=== PATIENT | male | born 1945 | race Caucasian/White ===

== ENCOUNTER 2017-07-02 07:46 | Observation (INO) | payer MEDICARE ==
[2017-07-02] MEDS ORDERED: ALBUTEROL SULFATE/IPRATROPIUM 3 ML NEBU IH ONE ×2 (08:20→08:29)
[2017-07-02] MEDS ORDERED: METHYLPREDNISOLONE SOD SUCC/PF 125 MG/2 ML VIAL IV ONE (08:20)
[2017-07-02] MEDS ORDERED: METHYLPREDNISOLONE SOD SUCC/PF 40 MG/ML VIAL ONE (08:29)
[2017-07-02 08:48] LABS: Hematocrit 36.4 % (42.0-52.0); Hemoglobin 11.8 gm/dL (13.5-18.0); Mean Cell Volume 88.8 fl (78-100); Mean Corpuscular Hemoglobin 28.8 pg (27-31); Mean Corpuscular Hgb Conc 32.4 g/dl (32-36); Mean Platelet Volume 10.2 fl (6.0-9.5); Neutrophil # 6.1 K/mm3 (1.3-6.0); Neutrophil % 74.7 % (42-75.0); Platelet Count 160 K/mm3 (150-450); Red Cell Distribution Width 14.1 % (11.5-14.0); White Blood Count 8.2 K/mm3 (4.0-10.5)
[2017-07-02] MEDS ORDERED: LEVOFLOXACIN IN DEXTROSE 5 % 500 MG/100 ML BAG IV SCH (09:00)
[2017-07-02 09:04] LABS: ALT 10 U/L (19-67); AST 11 U/L (0-48); Albumin * 3.3 gm/dl (3.4-5.0); Alkaline Phosphatase * 106 U/L (50-170); Anion Gap 2.7 mmol/L (6.8-13.8); BUN/Creatinine Ratio 17.2 (9.0-21.6); Bilirubin, Total 0.4 mg/dL (0.0-1.1); Blood Urea Nitrogen 22 mg/dL (6-23); Ca. Corrected For Albumin 9.4 mg/dL (8.4-10.2); Calcium * 9.2 mg/dL (7.9-10.9); Carbon Dioxide 36.7 mmol/L (24-32.6); Chloride 101 mmol/L (97-106); Glucose * 93 mg/dL (70-110); Potassium 4.4 mmol/L (3.4-4.6); Sodium 136 mmol/L (132-142); Total Protein 7.7 gm/dL (6.2-8.2)
[2017-07-02 09:05] LABS: Troponin I Less than 0.017 ng/ml (0.00-0.10)
--- NOTE | 2017-07-02 10:24 | ERNOTE ---
Abdominal HPI - Narrative Date of Service: 07/02/17 - General Chief Complaint: Constipation Time Seen by Provider: 07/02/17 08:16 Source: patient, family Exam Limitations: no limitations - Immun/Allergies/Home Medications Immunizatons: IMMUNIZATION HX Immunizations Up to Date No History of Influenza Vaccine More Information Required Hx Pneumococcal Vaccination More Information Required Allergies/Adverse Reactions: Allergies No Known Drug Allergies Allergy (Verified 07/02/17 08:03) Home Medications: HOME MEDICATIONS Albuterol Sulfate [Albuterol Sulfate 2.5 MG/0.5ML] 1 vial IH Q4H #60 vial [Last Taken Unknown] Albuterol Sulfate [Proair Hfa] 2 puff IH Q4H PRN 10/28/15 [Last Taken Unknown] Diltiazem HCl [Cardizem Cd] 180 mg PO DAILY #30 cap 10/28/15 [Last Taken Unknown ] Ipratropium [place] [Atrovent] 0.5 mg IH QID #40 vial.neb 10/28/15 [Last Taken Unknown] Ipratropium [place] [Ipratropium [place] (Atrovent)] 3 ml IH QID PRN 10/28/15 [ Last Taken Unknown] Aspirin [Aspirin Chewable] 81 mg PO DAILY 07/02/17 [Last Taken Unknown] Digoxin [Lanoxin] 0.125 mg PO DAILY 07/02/17 [Last Taken Unknown] Diltiazem HCl [Diltiazem 24Hr Cd] 180 mg PO DAILY 07/02/17 [Last Taken Unknown] LORazepam [Ativan] 0.5 mg PO TID PRN 07/02/17 [Last Taken Unknown] Metoprolol Tartrate [Lopressor] 12.5 mg PO DAILY 07/02/17 [Last Taken Unknown] - History of Present Illness Narrative: Patient presents via EMS with 2 complaints. He relates that he has been more SOB for the last 3 days or so. Some increased cough but not productive. No fever has been noted. He also relates he has been constipated. Last small BM 2 days ago. no vomiting. No CP. Noting seems to make this better or worse. has not seen anyone else for this. Timing: constant, getting worse Quality: moderate Activities at Onset: none Modifying Factors - (Improves): Present: other - nothing Modifying Factors - (Worsens): Present: other - nothing Associated Symptoms: Absent: headache, chest pain, fever/chills, syncope Prior Treatment: Absent: recently seen Review of Systems - Review of Systems Constitutional: Absent: fever EYE: Present: no symptoms reported ENT: Absent: sore throat Respiratory: Present: See HPI Cardiology: Absent: chest pain Gastrointestinal/Abdominal: Present: See HPI Genitourinary: Absent: dysuria Musculoskeletal: Present: other - no calf pain Skin: Absent: rash Neurological: Absent: weakness All Other Systems: All systems neg except as marked - Patient's Past Medical History Patient History - Medical: Anemia Patient History - Cardiac/Respiratory: COPD Patient History - Cancer: No Hx of Cancer Patient History - Surgical Procedures: Cataracts, EGD, Other Patient History - Other: None - Family History Mother Family History - Medical: Father Family History - Medical: Sister Family History - Medical: - Social History Living Situations: home Abuse History: No History of abuse Psych History: No pertinent hx Alcohol Use: none Drug Use: none - Immunizations Immunizations Up to Date: No Hx Pneumococcal Vaccination: More Information Required to Determine History of Influenza Vaccine: More Information Required to Determine Physical Exam - Physical Exam General Appearance: Present: alert, other - chronically ill appearing, mild tachypnea Head Exam: Present: normal inspection, no evidence of injury Eye Exam: Normal inspection: bilateral, PERRL: bilateral Ears, Nose, Throat: Absent: pharyngeal erythema Neck: Present: normal inspection Respiratory: Present: other - diminished throughout, faint wheezes noted. Tachypnea Cardiovascular/Chest: Present: regular rate, rhythm, normal peripheral pulses Gastrointestinal/Abdominal: Present: normal bowel sounds, nontender, soft. Absent: guarding, rebound Back Exam: Absent: CVA tenderness (R), CVA tenderness (L) Extremity Exam: Absent: pedal edema Neurological Exam: Present: alert, other - generalized weakness noted. No acute unilateral focal motor or sensory deficits Skin Exam: Present: normal color, warm/dry ED Progress - Results and Orders Patient's Lab Results:: I have reviewed the patient's lab results. - Vital Signs Patient's Vital Signs:: I have reviewed the patient's vital signs. Vital Signs: Vital Signs 07/02/17 07/02/17 07/02/17 07:58 08:13 08:28 Temperature 36.7 C Pulse Rate 72 65 59 L Respiratory 14 27 H 26 H Rate Blood Pressure 150/99 175/81 173/78 O2 Sat by Pulse 96 99 98 Oximetry 07/02/17 07/02/17 07/02/17 08:43 09:01 09:03 Temperature Pulse Rate 60 65 65 Respiratory 21 H 22 H 22 H Rate Blood Pressure 174/69 167/76 O2 Sat by Pulse 99 98 98 Oximetry 07/02/17 07/02/17 07/02/17 09:12 09:27 09:42 Temperature Pulse Rate 71 66 72 Respiratory 26 H 18 28 H Rate Blood Pressure 181/80 160/67 167/74 O2 Sat by Pulse 98 95 95 Oximetry 07/02/17 10:00 Temperature Pulse Rate 67 Respiratory 22 H Rate Blood Pressure 169/67 O2 Sat by Pulse 97 Oximetry - EKG EKG read: Interp. by me EKG Comments: Sinus rm rate 54 Non-specific ST/T wave changes, no STEMI - X-Ray X-Ray #1 X-Ray: chest Interpretation: Interp. by me X-ray Comments: No real-time radiology reads. Right lower lobe pneumonia. - Progress/Reassessment Chief Complaint: Constipation Progress Note-Subjective: 07/02/17 10:20 IV steroids and IV ABX given. Neb given. He has new pneumonia with home O2 dependent COPD and increased SOB. D/W Dr Ramos who will admit. Pt agreeable. Departure Clinical Impression: COPD with exacerbation, Pneumonia, Constipation - Departure Disposition: [facility] Condition: Fair
--- NOTE | 2017-07-02 12:22 | HP ---
Chief Complaint - Chief Complaint Date of Service: 07/02/17 Time of Service: 11:59 History of Present Illness: Mr. Marquez reports that he has been declining for some time and has had progressive weakness. He states that he is not really ambulatory because his legs are weak and he is afraid of falling he denies weight loss but looks very thin. He admits to dyspnea with minor exertion such as changing positions and dressing. He denies any pain at this time. He is admitted with diagnosis of acute exacerbation of COPD. He also appears as a failure to thrive adult. And he has chronic constipation problems with occasional fecal incontinence. - Patient's Past Medical History Patient History - Medical: Anemia Patient History - Cardiac/Respiratory: COPD Patient History - Cancer: No Hx of Cancer Patient History - Surgical Procedures: Cataracts, EGD, Other Patient History - Other: None - Family History Mother Family History - Medical: , Other - she of lung cancer. Family History - Cardiac/Respiratory: Angina, Coronary Heart Disease, Other - he has 2 brothers both of whom have coronary artery disease and one has had a pig valve replacement his mitral valve. Family History - Cancer: Lung Father Family History - Medical: Family History - Cardiac/Respiratory: Coronary Heart Disease Family History - Cancer: No pertinent family hx Sister Family History - Medical: Family History - Cardiac/Respiratory: No pertinent hx Family History - Cancer: No pertinent family hx - Social History Living Situations: home Abuse History: No History of abuse Psych History: No pertinent hx Does anyone smoke in the home?: Yes - Tito is a current every day smoker. Smoking Status: Current every day smoker Have you smoked in the past 12 months: Yes Alcohol Use: none Drug Use: none - Immunizations Immunizations Up to Date: No Hx Pneumococcal Vaccination: More Information Required to Determine History of Influenza Vaccine: More Information Required to Determine Review Of Systems (GEN) - Review of Systems Generalized/Overall Review: Present: Weakness, Malaise, Fatigue EENTM: Present: Blurred Vision Respiratory: Present: Cough, Shortness of Breath, Wheezing Cardiac: Present: No Symptoms Reported Abdominal: Present: Constipation, Other - Occasional fecal incontinence. Genitourinary: Present: No Symptoms Reported Musculoskeletal: Present: Other - Diffuse motor weakness. Neurological: Present: Depressed, Weakness Skin: Present: No Symptoms Reported, Dryness - With scaliness Endocrine: Present: No Symptoms Reported Misc: All systems neg except as marked Additional Comments: Mr. Marquez appears to be generally debilitated. He will need a thorough evaluation for her to thrive. He appears gaunt and malnourished. His report dentition Immunizations: IMMUNIZATION HX Immunizations Up to Date No History of Influenza Vaccine More Information Required Hx Pneumococcal Vaccination More Information Required Allergies/Adverse Reactions: Allergies Allergy/AdvReac Type Severity Reaction Status Date / Time No Known Drug Allergies Allergy Verified 07/02/17 08:03 Home Medications: HOME MEDICATIONS Albuterol Sulfate [Albuterol Sulfate 2.5 MG/0.5ML] 1 vial IH Q4H #60 vial [Last Taken Unknown] Albuterol Sulfate [Proair Hfa] 2 puff IH Q4H PRN 10/28/15 [Last Taken Unknown] Diltiazem HCl [Cardizem Cd] 180 mg PO DAILY #30 cap 10/28/15 [Last Taken Unknown ] Ipratropium [place] [Atrovent] 0.5 mg IH QID #40 vial.neb 10/28/15 [Last Taken Unknown] Ipratropium [place] [Ipratropium [place] (Atrovent)] 3 ml IH QID PRN 10/28/15 [ Last Taken Unknown] Aspirin [Aspirin Chewable] 81 mg PO DAILY 07/02/17 [Last Taken Unknown] Digoxin [Lanoxin] 0.125 mg PO DAILY 07/02/17 [Last Taken Unknown] Diltiazem HCl [Diltiazem 24Hr Cd] 180 mg PO DAILY 07/02/17 [Last Taken Unknown] LORazepam [Ativan] 0.5 mg PO TID PRN 07/02/17 [Last Taken Unknown] Metoprolol Tartrate [Lopressor] 12.5 mg PO DAILY 07/02/17 [Last Taken Unknown] Exam - Exam Vital Signs: Vital Signs - Last Taken Temp 36.8 C 07/02/17 11:11 Pulse 71 07/02/17 11:11 Resp 20 07/02/17 11:11 BP 170/69 07/02/17 11:11 Pulse Ox 100 07/02/17 11:11 Constitutional: Present: Alert, Oriented x3, Cooperative, No distress, Elderly, Thin and frail, Looks Older than stated age ENT Exam: Present: normal ENT inspection, hearing grossly normal, pharynx normal , TMs normal, hard of hearing, muffled/hoarse voice Eye Exam: bilateral eye: PERRL, EOMI, other - poor visual acuity both eyes Neck: Present: non-tender, full range of motion, supple, normal inspection Back Exam: Present: normal inspection, no CVA tenderness, no vertebral tenderness Breasts: Present: Other - Male breast tissue is normal Respiratory: Present: decreased breath sounds, rhonchi, expiration (prolonged). Absent: rales, stridor, wheezing Cardiovascular/Chest: Present: normal peripheral pulses, no chest tenderness, no edema, no gallop, irregularly irregular Peripheral Pulses: carotid (R): 2+, carotid (L): 2+, femoral (R): 2+, femoral (L ): 2+, dorsalis-pedis (R): 2+, dorsalis-pedis (L): 2+ Abdomen: Present: Normal bowel sounds, soft, nontender, nondistended, no hepatospenomegaly, no masses, firm - Probably from constipation and the colon. Absent: tender, guarding, rigidity, rebound tenderness, high pitched bowel sounds, hypoactive /Rectal: Present: Exam deferred Extremity: Present: normal range of motion, non-tender, normal inspection, no pedal edema, other - Lower extremity weakness Skin Exam: Present: warm/dry, no cyanosis, cool/dry, pallor Lymphatic: Present: no adenopathy Neurologic: Present: windows application developer II-XII nml as tested, oriented x 3, motor weakness, depressed affect. Absent: facial droop, dizzy/light-headedness Appearance: Present: no memory impairment, disheveled, impaired insight. Absent : appropriate appearance, appropriate insight, neat Eye contact: Present: cooperative, avoids eye contact. Absent: good eye contact , normal speech Thoughts: Present: normal thought pattern, no apparent hallucination, auditory hallucinations Diagnostic Studies: Laboratory Results WBC 8.2 K/mm3 (4.0-10.5) 07/02/17 08:42 RBC 4.10 M/mm3 (4.7-6.0) L 07/02/17 08:42 Hgb 11.8 gm/dL (13.5-18.0) L 07/02/17 08:42 Hct 36.4 % (42.0-52.0) L 07/02/17 08:42 MCV 88.8 fl (78-100) 07/02/17 08:42 MCH 28.8 pg (27-31) 07/02/17 08:42 MCHC 32.4 g/dl (32-36) 07/02/17 08:42 RDW 14.1 % (11.5-14.0) H 07/02/17 08:42 Plt Count 160 K/mm3 (150-450) 07/02/17 08:42 MPV 10.2 fl (6.0-9.5) H 07/02/17 08:42 Immature Gran % (Auto) 0.40 % (0.001-0.429) 07/02/17 08:42 Immature Gran # (Auto) 0.03 K/mm3 (0.000-0.0310) 07/02/17 08:42 Neutrophils % 74.7 % (42-75.0) 07/02/17 08:42 Lymphocytes % 16.3 % (20-51) L 07/02/17 08:42 Monocytes % 5.4 % (0.0-9) 07/02/17 08:42 Eosinophils % 2.7 % (0.0-3.0) 07/02/17 08:42 Basophils % 0.5 % (0.0-1.0) 07/02/17 08:42 Nucleated RBC % 0.0 k/mm3 (0-1) 07/02/17 08:42 Neutrophils # 6.1 K/mm3 (1.3-6.0) H 07/02/17 08:42 Lymphocytes # 1.3 k/mm3 (1.5-3.5) L 07/02/17 08:42 Monocytes # 0.4 k/mm3 (0.0-1.0) 07/02/17 08:42 Eosinophils # 0.2 k/mm3 (0.0-0.7) 07/02/17 08:42 Absolute Basophils 0.0 k/mm3 (0.0-0.1) 07/02/17 08:42 Sodium 136 mmol/L (132-142) 07/02/17 08:42 Plasma Sodium 136 mmol/L (130-142) 07/02/17 08:42 Potassium 4.4 mmol/L (3.4-4.6) 07/02/17 08:42 Chloride 101 mmol/L (97-106) 07/02/17 08:42 Carbon Dioxide 36.7 mmol/L (24-32.6) H 07/02/17 08:42 Anion Gap 2.7 mmol/L (6.8-13.8) L 07/02/17 08:42 BUN 22 mg/dL (6-23) 07/02/17 08:42 Creatinine 1.28 mg/dL (0.4-1.4) 07/02/17 08:42 Est GFR (Non-Af Amer) 59 mL/min (60-130) L 07/02/17 08:42 BUN/Creatinine Ratio 17.2 (9.0-21.6) 07/02/17 08:42 Random Glucose 93 mg/dL (70-110) 07/02/17 08:42 Lactic Acid, Venous 0.9 mmol/L (0.4-1.9) 07/02/17 08:35 Calcium 9.2 mg/dL (7.9-10.9) 07/02/17 08:42 Calcium Adj for Albumin 9.4 mg/dL (8.4-10.2) 07/02/17 08:42 Total Bilirubin 0.4 mg/dL (0.0-1.1) 07/02/17 08:42 AST 11 U/L (0-48) 07/02/17 08:42 ALT 10 U/L (19-67) L 07/02/17 08:42 Alkaline Phosphatase 106 U/L (50-170) 07/02/17 08:42 Troponin I Less than 0.017 ng/ml (0.00-0.10) 07/02/17 08:42 Total Protein 7.7 gm/dL (6.2-8.2) 07/02/17 08:42 Albumin 3.3 gm/dl (3.4-5.0) L 07/02/17 08:42 Influenza Type A Ag Negative (NEGATIVE) 07/02/17 Unknown Influenza Type B Ag Negative (NEGATIVE) 07/02/17 Unknown Assessment/Plan - Narrative Narrative: Assessment: 1. Acute exacerbation of COPD 2. Constipation 3. Failure to thrive in an adult 4. General debilitation Plan: 1. Aggressive pulmonary toilet and oxygen. 2. Get him started on a bowel management program to try to prevent constipation 3. Evaluate the safety of him living independently at home. - Assessment/Plan (1) COPD with exacerbation Problem: Acute (2) Adult failure to thrive Problem: Chronic (3) Constipation Problem: Chronic Qualifiers: Constipation type: chronic idiopathic constipation Qualified Code(s): K59.04 - Chronic idiopathic constipation (4) Gen. debilitation Problem: Chronic
[2017-07-02] MEDS ORDERED: guaiFENesin 100 MG/5 ML BTL PO PRN (12:26)
[2017-07-02] MEDS ORDERED: LORazepam 0.5 MG TABLET PO PRN (12:47)
[2017-07-02] MEDS ORDERED: IPRATROPIUM BROMIDE 0.5 MG/2.5 ML VIAL.NEB IH PRN (12:47)
[2017-07-02] MEDS ORDERED: FLU VACC QS2017-18(6MOS UP)/PF 60 MCG/0.5 ML SYRINGE IM ONE (13:00)
[2017-07-02] MEDS: NORMAL SALINE 1,000 ML IV PRN ×2 (13:11→21:18)
[2017-07-02] MEDS: NICOTINE 14 MG PATC TD SCH (15:08)
[2017-07-02] MEDS: ENOXAPARIN SODIUM 40 MG/0.4 ML SYRG SC SCH (15:20)
[2017-07-02] MEDS: ALBUTEROL SULFATE/IPRATROPIUM 3 ML NEBU IH SCH ×2 (15:31→18:06)
[2017-07-02] MEDS ORDERED: ALBUTEROL SULFATE 200 PUFF INHALER IH PRN (17:34)
[2017-07-02] MEDS ORDERED: MAGNESIUM HYDROXIDE 30 ML UDC PO PRN (17:34)
[2017-07-02] MEDS ORDERED: ALBUTEROL SULFATE 2.5 MG/0.5 ML VIAL.NEB IH PRN (17:34)
[2017-07-02] MEDS: BUDESONIDE 0.25 MG/2 ML VIAL.NEB IH PRN (18:05)
[2017-07-02] MEDS ORDERED: BISACODYL 5 MG TABLET.DR PO SCH (18:30)
[2017-07-02] MEDS: ALBUTEROL SULFATE 2.5 MG/3 ML VIAL.NEB IH SCH (20:04)
[2017-07-02] MEDS ORDERED: METOPROLOL SUCCINATE 25 MG TABLET.SA PO SCH (21:00)
[2017-07-02] MEDS ORDERED: METOPROLOL SUCCINATE 50 MG TABLET.SA PO ONE (21:13)
[2017-07-03] MEDS: NORMAL SALINE 1,000 ML IV PRN (05:26)
[2017-07-03 05:46] LABS: Hematocrit 30.1 % (42.0-52.0); Hemoglobin 9.9 gm/dL (13.5-18.0); Mean Corpuscular Hemoglobin 28.9 pg (27-31); Mean Corpuscular Hgb Conc 32.9 g/dl (32-36); Mean Platelet Volume 10.6 fl (6.0-9.5); Neutrophil # 5.6 K/mm3 (1.3-6.0); Neutrophil % 66.7 % (42-75.0); Platelet Count 153 K/mm3 (150-450); Red Blood Count 3.42 M/mm3 (4.7-6.0); Red Cell Distribution Width 14.2 % (11.5-14.0); White Blood Count 8.4 K/mm3 (4.0-10.5)
[2017-07-03 05:58] LABS: Albumin * 2.6 gm/dl (3.4-5.0); Anion Gap 4.8 mmol/L (6.8-13.8); BUN/Creatinine Ratio 19.7 (9.0-21.6); Bilirubin, Total 0.3 mg/dL (0.0-1.1); Ca. Corrected For Albumin 9.4 mg/dL (8.4-10.2); Calcium * 8.6 mg/dL (7.9-10.9); Carbon Dioxide 32.3 mmol/L (24-32.6); Digoxin 0.7 ng/mL (0.5-2.0); Magnesium 1.9 mg/dL (1.2-2.8); Potassium 4.1 mmol/L (3.4-4.6); Total Protein 6.3 gm/dL (6.2-8.2)
[2017-07-03] MEDS: ALBUTEROL SULFATE/IPRATROPIUM 3 ML NEBU IH SCH ×3 (07:22→15:02)
[2017-07-03] MEDS: BUDESONIDE 0.25 MG/2 ML VIAL.NEB IH PRN (07:25)
[2017-07-03] MEDS: ALBUTEROL SULFATE 2.5 MG/3 ML VIAL.NEB IH SCH ×3 (07:27→16:05)
[2017-07-03] MEDS ORDERED: ASPIRIN 81 MG TAB.CHEW PO SCH (09:00)
[2017-07-03] MEDS ORDERED: METOPROLOL TARTRATE 25 MG TABLET PO SCH (09:00)
[2017-07-03] MEDS ORDERED: DILTIAZEM HCL 180 MG CAP.SR.24H PO SCH ×2 (09:00)
[2017-07-03] MEDS ORDERED: PSYLLIUM SEED 1 PACKET PACKET PO SCH (09:00)
[2017-07-03] MEDS ORDERED: DIGOXIN 0.125 MG TABLET PO SCH (09:00)
[2017-07-03] MEDS ORDERED: MIRTAZAPINE 15 MG TABLET PO SCH ×2 (09:00→21:00)
[2017-07-03] MEDS ORDERED: CHOLECALCIFEROL 1,000 UNIT CAPSULE PO SCH (09:00)
[2017-07-03] MEDS ORDERED: NALTREXONE HCL 50 MG TABLET PO SCH (09:00)
[2017-07-03] MEDS ORDERED: ASPIRIN 81 MG TABLET.DR PO SCH (09:00)
[2017-07-03] MEDS ORDERED: POLYETHYLENE GLYCOL 3350 119 GM BTL PO SCH (09:00)
[2017-07-03] MEDS ORDERED: LEVOFLOXACIN IN DEXTROSE 5 % 500 MG/100 ML BAG IV SCH (10:00)
[2017-07-03] MEDS ORDERED: AZITHROMYCIN 250 MG TABLET PO SCH (13:15)
--- NOTE | 2017-07-03 13:59 | DS ---
(1) COPD with exacerbation Problem: Acute (2) Adult failure to thrive Problem: Chronic (3) Constipation Problem: Chronic Qualifiers: Constipation type: chronic idiopathic constipation Qualified Code(s): K59.04 - Chronic idiopathic constipation (4) Gen. debilitation Problem: Chronic Description of Stay: Tito Marquez is a 72-year-old male who presented with chief complaint of weakness and constipation. Recurrent constipation problems and usually has to have some assistance to get cleaned out mechanically. He had an enema after admission and also some cathartics and has had a lot of bowel cleaning out since admission. He is feeling much better today. He is also much better hydrated following IV fluid administration. Has no other problems or complaints. He'll need discharge with home health but refuses Meals on Wheels. Procedures Performed: none Discharge Disposition: Home w/home health care Disposition: Home self-care Condition: Fair Discharge Activity: Activity as tolerated Discharge Diet: General/regular food, High Fiber Additional Patient Instructions (free text): -Please make TCM appointment unless jail discharge. Thank you! Ysabel @ [phone]. [facility]. Please call report and fax orders upon discharge. C Dr. Ramos in the office in 6 weeks Prescriptions (Any new or edited meds): Levofloxacin [Levaquin] 500 mg PO DAILY 7 Days #7 tablet Complete Home Medications List: Complete Home Medication List: Albuterol Sulfate [Proair Hfa] 2 puff IH Q4H PRN 10/28/15 Albuterol Sulfate [Albuterol Sulfate 2.5 MG/3 ML] 2.5 mg IH QID 07/02/17 Albuterol Sulfate [Proair Respiclick] 180 mcg IH Q4H PRN 07/02/17 Aspirin [Aspirin EC] 81 mg PO DAILY 07/02/17 Budesonide [Pulmicort Respules] 0.25 mg IH BID PRN 07/02/17 Cholecalciferol (Vitamin D3) [Vitamin D3] 2,000 unit PO DAILY 07/02/17 Digoxin [Digitek] 125 mcg PO DAILY 07/02/17 Diltiazem HCl [Diltiazem 24Hr Cd] 180 mg PO HS 07/02/17 LORazepam [Ativan] 0.5 mg PO TID PRN 07/02/17 Magnesium Hydroxide [Milk of Magnesia] 15 ml PO DAILY PRN 07/02/17 Metoprolol Succinate 25 mg PO HS 07/02/17 Mirtazapine 7.5 mg PO DAILY 07/02/17 Naltrexone HCl [ReVia] 100 mg PO DAILY 07/02/17 Polyethylene Glycol 3350 [Miralax] 17 gm PO DAILY 07/02/17 Wheat Dextrin [Benefiber] 3 gm PO DAILY 07/02/17 Levofloxacin [Levaquin] 500 mg PO DAILY 7 Days #7 tablet 07/03/17 guaiFENesin [Robitussin] 200 mg PO Q4H PRN btl 07/03/17
[2017-07-03] MEDS: NICOTINE 14 MG PATC TD SCH (14:10)
[2017-07-03 14:26] VITALS: BP 138/55
[2017-07-03] MEDS: ENOXAPARIN SODIUM 40 MG/0.4 ML SYRG SC SCH (15:24)
[2017-07-04] MEDS ORDERED: POLYETHYLENE GLYCOL 3350 119 GM BTL PO SCH (09:00)
== END 2017-07-03 16:05 | disposition home health service (06) ==
LOC: ER 07:46 → MS 10:20
PROVIDERS: ADMIT Family Medicine; ATTEND Family Medicine
DX: F17.200 Nicotine dependence, unspecified, uncomplicated; Z68.1 Body mass index [BMI] 19.9 or less, adult; I48.2 Chronic atrial fibrillation; R62.7 Adult failure to thrive; D64.9 Anemia, unspecified; J44.1 Chronic obstructive pulmonary disease with (acute) exacerbation; K59.04 Chronic idiopathic constipation; R53.81 Other malaise; Z23 Encounter for immunization
CPT/HCPCS: 36415; 71045; 74018; 80053; 80162; 83605; 83735; 84484; 85025; 87040; 87400; 90471; 90686; 93005; 94640; 96365; 96372; 96375; 97110; 97161; 97165; 99285; G0378; G8978; G8979; G8980; G8987; G8988; G8989